=== PATIENT | female | born 1960 | race Caucasian/White ===

== ENCOUNTER 2017-06-01 17:54 | Emergency (ER) | payer OTHER ==
[~2017-06-01] VITALS: Ht 170.2 cm; Wt 99.8 kg
[~2017-06-01 17:54] MED LIST: CELEXA; CLIMARA 0.070.075 MG; NORCO 5-325 TA1 EACH PO; SYNTHROID
[2017-06-01] MEDS ORDERED: TAMIFLU30 MG PO (18:10)
[2017-06-01] MEDS ORDERED: ZOFRAN ODT4 MG DISSOLVE (18:11)
[2017-06-01] MEDS ORDERED: TRAMADOL 50 MG50 MG PO (18:11)
[2017-06-01] MEDS ORDERED: MUCINEX600 MG PO (18:11)
[2017-06-01] MEDS ORDERED: TYLENOL EXTRA500 MG PO (18:11)
[2017-06-01] MEDS ORDERED: NORCO 5-325 TA1 EACH PO (18:12)
[2017-06-01] MEDS ORDERED: IBUPROFEN 800800 M1 PO (18:12)
[2017-06-01] MEDS ORDERED: B-COMPLEX WITH1 EACH PO (18:13)
[2017-06-01] MEDS ORDERED: UNICOMPLEX M TA1 TA1 PO (18:13)
[2017-06-01] MEDS ORDERED: FISH OIL 1,001000 M2 PO (18:13)
[2017-06-01 18:29] LABS: HEMATOCRIT 42.8 % (37.0-47.0); HEMOGLOBIN 14.6 gm/dL (12.0-15.0); MCH 30.2 pg (26.0-34.0); MCHC 34.1 g/dL (28.0-37.0); MCV 88.8 fL (80.0-100.0); NUCLEATED RBCS 0 /100WBC; PLATELET COUNT* 155 thou/uL (150-400); RBC 4.82 mil/uL (4.20-5.00); RDW-CV 12.8 % (10.5-14.5); WBC 3.6 thou/uL (4.0-11.0)
[2017-06-01 18:39] LABS: CALCIUM 8.5 mg/dL (8.5-10.1); CREATININE 0.8 mg/dL (0.6-1.3); POTASSIUM 3.9 mmol/L (3.5-5.1)
[2017-06-01 18:43] LABS: ALBUMIN 3.5 g/dL (3.4-5.0); TOTAL BILIRUBIN 0.3 mg/dL (<0.1-1.0); TOTAL PROTEIN 7.4 g/dL (6.4-8.2)
[2017-06-01] MEDS ORDERED: TESSALON PERLE100 MG PO (18:50)
[2017-06-01] MEDS ORDERED: PROMS25 WY RECTAL (18:50)
[2017-06-01] MEDS ORDERED: PROMETHAZINE V473 ML PO (18:50)
[2017-06-01 18:58] LABS: ABSOLUTE LYMPHOCYTES 1.5 thou/uL (0.8-5.3); ABSOLUTE MONOCYTES 0.6 thou/uL (0.0-1.2); ABSOLUTE NEUTROPHILS 1.5 thou/uL (1.6-8.1); PLATELET ESTIMATE ADEQUATE
[2017-06-01 19:30] VITALS: BP 140/90
== END 2017-06-01 19:30 | disposition home or self-care (01) ==
LOC: M.ERS 17:54
PROVIDERS: Physician Assistant
DX: J09.X9 Influenza due to identified novel influenza A virus with other manifestations (principal); R11.2 Nausea with vomiting, unspecified; Z98.890 Other specified postprocedural states; Z90.710 Acquired absence of both cervix and uterus; Z86.14 Personal history of Methicillin resistant Staphylococcus aureus infection